=== PATIENT | male | born 1990 | race Caucasian/White ===

== ENCOUNTER 2017-03-16 17:52 | Emergency (ER) | payer SELFPAY ==
[2017-03-16] MEDS ORDERED: ONDANSETRON 4 MG/2 ML VIAL ONE (18:38)
--- NOTE | 2017-03-16 18:40 | EDPHY ---
H & P Time Seen by Provider: 03/16/17 18:19 HPI/ROS: CHIEF COMPLAINT: Multiple complaints, vomiting HISTORY OF PRESENT ILLNESS: The patient is a 26 y/o male arriving with his boss with multiple complaints that began after a ski collision 4 days ago. He describes landing poorly after doing a "360 jump" and landing on his right leg. Since that injury he complains of numbness to his right leg, lower back pain, and LLQ pain that radiates to his left groin. He is also complaining of persistent vomiting and "explosive" diarrhea with "50% blood" for the last 2 days. He says he has been unable to eat since the vomiting began and has associated chills. He notes he had unprotected sex 3 weeks ago but denies penile drainage or dysuria. REVIEW OF SYSTEMS: Constitutional: see HPI Eyes: No visual changes ENT: No sore throat Respiratory: No cough, no shortness of breath Cardiac: No chest pain Gastrointestinal: see HPI Genitourinary: No hematuria, no dysuria Musculoskeletal: see HPI Skin: No rash Neurological: see HPI Psychiatric: No depression Past Medical/Surgical History: Denies Social History: Marijuana use 2 days ago. No recent alcohol use. Daily smoker. Smoking Status: Current every day smoker Physical Exam: General Appearance: Alert, well-appearing, smiling/joking Eyes: Pupils equal and round, dilated, no conjunctival pallor or injection ENT, Mouth: Mucous membranes moist Neck: Normal inspection Respiratory: Lungs are clear to auscultation Cardiovascular: Regular rate and rhythm Gastrointestinal: Abdomen is soft and non-tender, no tenderness in inguinal area Neurological: A&O, nonfocal, normal leg strength though patient is not completely participatory in exam, normal sensation to light touch/pain, 1+ deep patellar tendon reflexes, pt walked with a normal gait into the exam room Skin: Warm and dry, no rash Back: Left lumbar paraspinous tenderness Extremities: normal inspection, RLE ROM without pain Psychiatric: Mood and affect normal Constitutional: Initial Vital Signs Temperature (C) 36.4 C 03/16/17 17:56 Heart Rate 104 H 03/16/17 17:56 Respiratory Rate 18 03/16/17 17:56 Blood Pressure 153/92 H 03/16/17 17:56 O2 Sat (%) 96 03/16/17 17:56 O2 Delivery Mode Room Air Allergies/Adverse Reactions: No Known Allergies Allergy (Unverified 03/16/17 18:02) Home Medications: Medication Instructions Recorded NK [No Known Home Meds] 03/16/17 Medical Decision Making - Diagnostics Imaging Results: Xray of the right hip/pelvis and lumbar spine independently reviewed by me: JESSICA Imaging: I viewed and interpreted images myself ED Course/Re-evaluation: This is an apparently healthy 26 y/o male who presents today with multiple complaints, primarily complaining of vomiting and blood in his stool. He is not incredibly cooperative with exam, but he has no focal neuro deficits. He has some mild left paraspinous tenderness. He is well-appearing, and does not appear like someone who has been having significant vomiting and diarrhea. Plan for IV, labs, GI panel, and right hip and lumbar spine imaging. He declines pain medication. 4mg IV Zofran administered. Reassessed patient. He has been making inappropriate comments to the female staff. He is now requesting pain control. 30mg IV Toradol administered for pain. RN switched to a male nurse. Right hip and lumbar spine x-rays are unremarkable. I discussed these findings with the patient and recommended following up with his PCP for continued symptoms over the next few days. He has not been able to provide a stool specimen and states, "I think it stopped." Tolerated oral fluids well; no vomiting in ED. He will be discharged home with a script for Zofran to use as needed as well as a stool specimen cup and lab prescription. He is comfortable with this plan. I have strongly encouraged him to f/u with PCP. Differential Diagnosis: includes though not limited to dehydration, infectious diarrhea, lumbar radiculopathy, fracture, spinal cord injury - Data Points Laboratory Results: Laboratory Results 03/16/17 18:35 03/16/17 18:35 Medications Given: Discontinued Medications Sodium Chloride (Ns) 1,000 mls @ 0 mls/hr IV ONCE ONE PRN Reason: Wide Open Stop: 03/16/17 18:42 Last Admin: 03/16/17 18:43 Dose: 1,000 mls Ketorolac Tromethamine (Toradol) 30 mg IVP EDNOW ONE Stop: 03/16/17 19:06 Last Admin: 03/16/17 19:26 Dose: 30 mg Ondansetron HCl (Zofran) 4 mg IVP EDNOW ONE Stop: 03/16/17 18:42 Last Admin: 03/16/17 18:44 Dose: 4 mg Ondansetron HCl (Zofran Odt 4 Mg Prepack#2) 1 btl TAKEHOME EDNOW ONE Stop: 03/16/17 19:31 Last Admin: 03/16/17 19:38 Dose: 1 btl Departure - Departure Disposition: Home, Routine, Self-Care Clinical Impression: Right leg pain Vomiting Qualifiers: Vomiting type: unspecified Vomiting Intractability: non-intractable Nausea presence: with nausea Qualified Code(s): R11.2 - Nausea with vomiting, unspecified Condition: Good Instructions: Acute Nausea and Vomiting (ED), Leg Pain (ED) Additional Instructions: 1. Take Zofran as prescribed when needed for nausea or vomiting. 2. Follow up with your primary care provider for symptoms not improved over the next few days. 3. X-ray imaging of your right hip and lumbar spine did not show any fractures. Referrals: [facility],. [Clinic] - As per Instructions Report Scribed for: Tanya Jiménez Report Scribed by: Carmen Padilla Date of Report: 03/16/17 Time of Report: 18:40 Physician Review and Approval Statement: 03/16/17 18:41 Portions of this note were transcribed by a medical researcher. I personally performed a history, physical exam, medical decision making, and confirmed accuracy of information the transcribed note.
[2017-03-16] MEDS ORDERED: NS 1,000 ML IV ONE (18:41)
[2017-03-16] MEDS ORDERED: ONDANSETRON 4 MG/2 ML VIAL IVP ONE (18:41)
[2017-03-16 18:48] LABS: % IMMATURE GRANULYOCYTES 0.3 % (0.0-1.1); ABSOLUTE IMMATURE GRANULOCYTES 0.02 10^3/uL (0.00-0.10); ADD DIFF? NO; ADD MORPH? NO; ADD SCAN? NO; ATYPICAL LYMPHOCYTE FLAG 20 (0-99); FRAGMENT RBC FLAG 0 (0-99); HEMOGLOBIN 17.6 g/dL (13.7-17.5); LEFT SHIFT FLG 10 (0-99); LIPEMIA HEMOLYSIS FLAG 90 (0-99); MEAN CELL HEMOGLOBIN 32.3 pg (27.9-34.1); MEAN CELL HEMOGLOBIN CONCENTR. 35.9 g/dL (32.4-36.7); MEAN CELL VOLUME 89.9 fL (81.5-99.8); MEAN PLATELET VOLUME 8.8 fL (8.7-11.7); PLATELET CLUMPS FLAG 10 (0-99); PLATELET COUNT 237 10^3/uL (150-400); RED BLOOD CELL COUNT 5.45 10^6/uL (4.40-6.38); RED CELL DISTRIBUTION WIDTH 12.2 % (11.5-15.2)
[2017-03-16 19:01] LABS: ALANINE AMINOTRANSFERASE 32 IU/L (21-72); ALKALINE PHOSPHATASE 53 IU/L (38-126); ANION GAP 14 mEq/L (8-16); ASPARTATE AMINOTRANSFERASE 39 IU/L (17-59); BILIRUBIN,TOTAL 2.1 mg/dL (0.1-1.4); BILIRUBIN-CONJUGATED 0.5 mg/dL (0.0-0.5); BILIRUBIN-UNCONJUGATED 1.6 mg/dL (0.0-1.1); CALCIUM 9.5 mg/dL (8.5-10.4); CARBON DIOXIDE 25 mEq/l (22-31); CHLORIDE 102 mEq/L (97-110); CREATININE 0.8 mg/dL (0.7-1.3); GLOMERULAR FILTRATION RATE > 60; GLUCOSE 88 mg/dL (70-100); POTASSIUM 4.5 mEq/L (3.5-5.2); SODIUM 141 mEq/L (134-144); TOTAL PROTEIN 8.5 g/dL (6.3-8.2)
[2017-03-16] MEDS ORDERED: KETOROLAC 30 MG/1 ML SDV IVP ONE (19:05)
[2017-03-16] MEDS ORDERED: ONDANSETRON 4MG PREPACK#2 BTL TAKEHOME ONE (19:30)
[2017-03-16 19:45] VITALS: BP 129/79; PULSE 80; RESP 14; TEMP 98.4; O2SAT 94
== END 2017-03-16 19:44 | disposition home or self-care (01) ==
DX: S89.91XA Unspecified injury of right lower leg, initial encounter (principal); R11.2 Nausea with vomiting, unspecified; F17.200 Nicotine dependence, unspecified, uncomplicated; V00.328A Other snow-ski accident, initial encounter
CPT/HCPCS: 96374; J1885; J2405